=== PATIENT | female | born 1975 | race Caucasian/White ===

== ENCOUNTER → 2018-08-09 | Outpatient (CLI) | payer BC ==
[~2018-08-09] MED LIST: ESTR1PAT4 TD; MELO-207 PO
--- NOTE | 2018-08-09 09:47 | RADIOLOGY IMAGING REPORT ---
FACILITY: [facility] - [place] PATIENT NAME: Nery Shields : 1975 MR: [id number] V: [id number] EXAM DATE: ORDERING PHYSICIAN: ANITA MARCH TECHNOLOGIST: [place] [facility] [place] Patient: Nery Shields : 1975 Visit/Account:[id number] Date of Sevice: 08/09/2018 FOOT 3 VIEW RIGHT Indication: Foot pain. Heel pain. Comparison: None Available Findings: 3 views of the right foot were obtained. No evidence of fracture, dislocation, or acute osseous abnormality of the right foot. There is no focal soft tissue abnormality. No evidence of radiopaque foreign body. IMPRESSION: 1. Normal right foot. Report Dictated By: Gerson Ayala at 08/09/2018 9:39 AM Report E-Signed By: Gerson Ayala at 08/09/2018 9:43 AM WSN:[id number]
== END ==
LOC: RAD 09:07
PROVIDERS: ATTEND Internal Medicine
DX: M79.671 Pain in right foot (principal)

== ENCOUNTER → 2018-11-04 | Outpatient (CLI) | payer BC ==
[~2018-11-04] MED LIST changes: +AMOX-559 PO; +FLUT16SP19 NS; +LEVO750T44 PO; +ONDA8TAB91 PO
--- NOTE | 2018-11-04 14:14 | RADIOLOGY IMAGING REPORT ---
[place] [facility] [place] NAME: Nery Shields : 1975 MR: [id number] V: [id number] EXAM DATE: ORDERING PHYSICIAN: ANITA MARCH TECHNOLOGIST: [place] [facility] [place] Patient: Nery Shields : 1975 Visit/Account:[id number] Date of Sevice: 11/04/2018 ELBOW 3 VIEW LEFT History: Lateral left elbow pain. Comparison study: None. Findings: There is no fracture, dislocation or joint effusion involving the left elbow. There is no soft tissue swelling over the olecranon process. IMPRESSION: Normal left elbow images. Report Dictated By: Jeremiah Flores MD at 11/04/2018 2:09 PM Report E-Signed By: Jeremiah Flores MD at 11/04/2018 2:10 PM WSN:[id number]
== END ==
LOC: RAD 13:30
PROVIDERS: ATTEND Internal Medicine
DX: M77.10 Lateral epicondylitis, unspecified elbow (principal)

== ENCOUNTER → 2018-11-09 | Outpatient (CLI) | payer BC | LOC: LAB 16:32 | PROVIDERS: ATTEND Nurse Practitioner Primary Care | DX: J02.9 Acute pharyngitis, unspecified (principal) | CPT/HCPCS: 87081 ==

== ENCOUNTER → 2018-12-03 | Outpatient (CLI) | payer BC ==
[~2018-12-03] MED LIST changes: +FLU150 PO
== END ==
LOC: LAB 11:19
PROVIDERS: ATTEND Nurse Practitioner Primary Care
DX: R30.0 Dysuria (principal)
CPT/HCPCS: 81001; 87210